=== PATIENT | female | born 1960 | race Caucasian/White ===

== ENCOUNTER → 2017-01-03 | Outpatient (CLI) | payer BC ==
--- NOTE | 2017-01-03 10:07 | RAD ---
Abdominal ultrasound, 01/03/2017: History: Right upper quadrant pain The gallbladder is within normal limits in size. There is no sonographic evidence of cholelithiasis. The gallbladder lara are not thickened. No bile duct dilatation is seen. The visualized portions of the pancreas, spleen and left kidney are unremarkable. A 1.8 cm parapelvic renal cyst is present on the right. The right kidney is otherwise unremarkable. The abdominal aorta is of normal caliber. The inferior vena cava shows no abnormality. No free fluid is evident in the abdomen. IMPRESSION: 1. Small right renal cyst. 2. The abdominal ultrasound is otherwise unremarkable.
== END | disposition home or self-care (01) ==
LOC: US 07:41
PROVIDERS: ATTEND Nurse Practitioner Family
DX: N28.1 Cyst of kidney, acquired (principal); R10.11 Right upper quadrant pain
CPT/HCPCS: 76700